=== PATIENT | female | born 1965 | race Caucasian/White ===

== ENCOUNTER 2016-10-10 01:34 | Emergency (ER) | payer BC ==
--- NOTE | 2016-10-10 01:43 | EDM.PDOC ---
ED HPI GI/ABDOMINAL - General Chief Complaint: Gastrointestinal Problem Stated Complaint: HEARTBURN/FULLNESS/DIARRHEA Time Seen by Provider: 10/10/16 01:42 Source of Information: Reports: Patient History Limitations: Reports: No limitations - History of Present Illness INITIAL COMMENTS - FREE TEXT/NARRATIVE: 51-year-old female presents the ED for evaluation of lower retrosternal , epigastric pressure discomfort does not radiate through to her back. No associated burping or belching. She took Prilosec before leaving home tonight and 2 aspirins and is starting to feel some degree of relief. She has associated loose watery stools almost every hour for the last 24 hours. She's been able to eat and drink otherwise fairly normally. Possibility of bad food exposure after eating out i.e. chicken dinner on Monday night. Symptoms started 8-12 hours later. Possibility of Campylobacter exists. No blood in the stool. She has no known heart disease. She reports a similar type pain at Rhianna time and a milder case a few weeks ago. Question of whether she has a hiatal hernia that is sliding intermittently causing symptoms. She gets heartburn occasionally. He takes Prilosec occasionally. Symptom Onset Date: 10/09/16 Symptom Onset Time: 22:00 Timing/Duration: Reports: Hour(s):, Gradual onset Location: other (Epigastric lower retrosternal pressure discomfort) Quality: Reports: fullness (Epigastrium and lower retrosternal chest.) Severity: moderate Improves with: Reports: other (Nothing seems to make it better or worse although taking 2 aspirins before she came of this seems to be getting a bit better at this time). Denies: defecating Context: Reports: bad/questionable food (There is a small possibility of). Denies: sick contact, out of country travel ( bad food exposure.), recent surgery, recent trauma, lifting, activity/exercise Associated Symptoms (-Female): Reports: chest pain, diarrhea (Loose stools almost every hour for the last day), nausea/vomiting. Denies: back pain (Lower retrosternal chest pressure discomfort), groin pain, shoulder pain, constipation , bloody stools, fever/chills, loss of appetite, malaise, other (Occasional nausea no vomiting) Treatments [employer]: Reports: Other (see below) (Prilosec tablet and 2 aspirins before she came to the hospital) - Related Data Allergies/ADRs: Allergies Allergy/AdvReac Type Severity Reaction Status Date / Time No Known Allergies Allergy Verified 10/10/16 01:44 Home Meds: Home Meds Ciprofloxacin HCl [Cipro] 500 mg PO BID #10 tablet 10/10/16 [Rx] Hyoscyamine Sulfate [Levsin-Sl] 0.125 mg SL ASDIRECTED #2 tab.subl 10/10/16 [Rx] Social & Family History - Living Situation & Occupation Living situation: Reports: Occupation: employed ED ROS GENERAL - Review of Systems Review Of Systems: See Below Constitutional: Reports: decreased appetite. Denies: fever, chills, malaise, weakness, fatigue, weight loss HEENT: Reports: No symptoms Respiratory: Denies: Shortness of Breath, Wheezing, Pleuritic Chest Pain, Cough , Sputum Cardiovascular: Reports: Chest pain. Denies: Blood pressure problem (Sabina show chest pressure discomfort), Claudication, Dyspnea on exertion, Edema, Lightheadedness, Orthopnea, Palpitations Endocrine: Denies: fatigue, high glucose, low glucose GI/Abdominal: Reports: Abdominal pain (Epigastrium), Diarrhea. Denies: Decreased appetite, Difficulty swallowing, Distension, Flatus, Hematemesis, Hematochezia, Melena : Reports: no symptoms Musculoskeletal: Reports: no symptoms Skin: Reports: no symptoms Neurological: Reports: No Symptoms ED EXAM, GI/ABD - Physical Exam Exam: See Below Exam Limited By: No limitations General Appearance: alert, WD/WN, no apparent distress. No: anxious, obtunded Eyes: bilateral: normal appearance Throat/Mouth: Normal inspection, Normal lips, Normal teeth, Normal oropharynx Head: atraumatic, normocephalic Neck: normal inspection, supple, non-tender, full range of motion. No: lymphadenopathy (L), lymphadenopathy (R) Respiratory/Chest: no respiratory distress, lungs clear, normal breath sounds, no accessory muscle use Cardiovascular: normal peripheral pulses, regular rate, rhythm, no edema, no gallop, no murmur, no rub GI/Abdominal: normal bowel sounds, soft, non tender, no organomegaly, no distention, no abnormal bruit. No: Garcia's sign Back Exam: normal inspection, full range of motion Extremities: normal inspection, normal range of motion, non-tender, normal capillary refill Neurological: alert, oriented, CN II-XII intact, normal cognition, normal gait Psychiatric: normal affect, normal mood Skin Exam: Warm, Dry, Intact, Normal color, No rash EKG INTERPRETATION EKG Date: 10/10/16 Time: 02:00 Rhythm: NSR Rate (beats/min): 75 [place]: normal P-wave: present QRS: RBBB ST-T: normal (Incomplete right bundle-branch block) QT: prolonged (Family prolonged) EKG Interpretation Comments: Essentially normal ECG Course - Vital Signs Last Recorded V/S: Last Vital Signs Temp 36.5 C 10/10/16 01:42 Pulse 80 10/10/16 01:42 Resp 16 10/10/16 01:42 BP 169/90 H 10/10/16 01:42 Pulse Ox 95 10/10/16 01:42 - Orders/Labs/Meds Orders: Active Orders 24 hr Category Date Time Status EKG Documentation Completion [RC] STAT Care 10/10/16 01:57 Active Chest 2V [CR] Stat Exams 10/10/16 01:57 Taken Meds: Medications Discontinued Medications Generic Name Dose Route Start Last Admin Trade Name Freq PRN Reason Stop Dose Admin Hyoscyamine 0.125 mg 10/10/16 01:56 10/10/16 02:00 Hyomax-Sl SL 10/10/16 01:57 0.125 mg ONETIME ONE Administration Hyoscyamine Confirm 10/10/16 02:51 Hyomax-Sl Administered 10/10/16 02:52 Dose 0.25 mg .ROUTE .STK-MED ONE - Radiology Interpretation Free Text/Narrative:: 50-year-old female presents to the ED with the lower retrosternal epigastric pressure discomfort that is not rates through her back. No associated burping or belching. She feels a bit little bit like heartburn but more of a pressure discomfort. She took Prilosec and 2 aspirins before coming to the hospital within the last hour and is starting to feel some improvement. She has associated loose stools almost every hour for the last 24 hours. No blood. No recent antibiotic usage in the last month. No previous abdominal surgery. Examination reveals a benign abdomen. Some pressure in epigastrium. Question of hiatal hernia is present. Obvious enteritis the possibility of foodborne illness is present. Plan stool for culture sensitivity and white cells of one becomes available. Levsin as 0.125 mg sublingually now and repeat in 5-10 minutes. Billing is so we'll give her a GI cocktail. Two-view chest x-ray to be done to see if I can visualize evidence of hiatal hernia. Negative abdominal examination for gallbladder disease. She does not appear to be volume depleted at this time. ECG will be done. - Re-Assessments/Exams Free Text/Narrative Re-Assessment/Exam: 10/10/16 03:00: Two-view chest x-ray was within normal limits. ECG normal as well. Patient feels fine she has no discomfort at all. She'll return if you want better before she got the first dose Levsin and therefore is hard for me to say that it helped her much. He no diarrhea stools while here therefore we were not able to obtain a sample. We'll discharge her home with to Levsin tablets to be utilized for similar type illness which occurs again is him strongly suspect she has a hiatal hernia. As far as the diarrhea goes posterior and clear fluid diet and advanced diet slowly over the next day or 2. Avoid all dairy products no apple juice or grape juice. If she has more than 8-10 stools in the next 10 hours is strongly suggestive foodborne illness. She will then fill the prescription for Cipro 500 mg twice daily for 5 days . Possibility of picking up Campylobacter jejuni from undercooked chicken that she ate late Monday, October 08 for supper. Departure - Departure Time of Disposition: 02:52 Disposition: Home, Self-Care 01 Condition: fair Clinical Impression: Non-cardiac chest pain, Hiatal hernia, Diarrhea in adult patient Prescriptions: Ciprofloxacin HCl [Cipro] 500 mg PO BID #10 tablet Hyoscyamine Sulfate [Levsin-Sl] 0.125 mg SL ASDIRECTED #2 tab.subl Instructions: Diarrhea, Adult, Hiatal Hernia Referrals: Mandi Champion MD [Primary Care Provider] - Forms: ED Department Discharge Additional Instructions: Evaluation in the emergency room tonight in regards to development of epigastric lower retrosternal pressure discomfort with associated significant diarrhea almost every hour for the last 24 hours. This suggests gastroenteritis involving both the stomach and the bowel. Chest x-ray and heart tracing were normal and there was no evidence of heart related illness. Strong suspicion of hiatal hernia causing pressure in the epigastrium present since you have had similar previous events. The diarrhea is highly suggestive of foodborne illness possibly Campylobacter picked up from chicken night before last. I will send her home at to lessen tablets that can be utilized for similar type of event in the future. If you develop epigastric pressure discomfort take one tablet under the tongue and a few receive only partial relief her transient relief a repeat second tablet he 6-10 minutes later. 2 tablets to relieve the discomfort for the tablets are not going to either. In regards to the diarrhea I would suggest Gatorade or Powerade utilizing 5-6 ounces per hour for the next 16 hours. When hungry try crackers. If this is tolerated may advance to soup broth or turkey rice turkey noodle soup et cetera. May then advance to cookies crackers toast push day etc. Should avoid all dairy products and no apple or grape juice until stools are formed backup. If diarrhea persists is over the next 8-12 hours particularly if it's every hour is strongly suggestive foodborne illness. I would advise you to fill the prescription for Cipro antibiotic to be taken twice daily for the next 5 days to clear up foodborne illness. If upper GI symptoms continue then upper GI.endoscopy is likely in order to rule out any problems at the juncture of the food pipe and stomach. - My Orders Last 24 Hours: My Active Orders 10/10/16 01:57 EKG Documentation Completion [RC] STAT Chest 2V [CR] Stat - Assessment/Plan Last 24 Hours: My Active Orders 10/10/16 01:57 EKG Documentation Completion [RC] STAT Chest 2V [CR] Stat
[2016-10-10 01:44] VITALS: BP 169/90
[2016-10-10] MEDS ORDERED: Hyoscyamine 0.125 MG Tab.SL SL ONE (01:56)
[2016-10-10] MEDS ORDERED: Hyoscyamine 0.125 MG Tab.SL ONE (02:51)
--- NOTE | 2016-10-10 07:42 | CR ---
Chest: Two views of the chest were obtained. Comparison: No previous study. Heart size is normal. Mild tortuosity of the thoracic aorta is seen. Lungs are clear. Bony structures show mild degenerative change within the lower and mid thoracic spine. Impression: 1. Incidental findings. Nothing acute is identified on two-view chest x-ray. Diagnostic code #2
== END 2016-10-10 03:05 | disposition home or self-care (01) ==
LOC: JD.ED 01:34
DX: R07.89 Other chest pain (principal); K44.9 Diaphragmatic hernia without obstruction or gangrene; R19.7 Diarrhea, unspecified
CPT/HCPCS: 71020; 93005; 99284; A9270